=== PATIENT | male | born 1970 | race Caucasian/White ===

== ENCOUNTER → 2020-05-24 13:28 | Outpatient (BNVA) | payer BC, SELFPAY | PROVIDERS: Family Provider Internal Medicine; PCP Specialist; Referring Provider Otolaryngology; Visit Provider Nurse Practitioner | DX: R41.3 Other amnesia (principal); R41.9 Unspecified symptoms and signs involving cognitive functions and awareness | CPT/HCPCS: 96116; 99204 ==

== ENCOUNTER 2020-06-07 08:32 | Outpatient (CLI) | payer BC, SELFPAY ==
--- NOTE | 2020-06-07 08:42 | MR_ITS ---
WS: [id number] MRI BRAIN WITH AND WITHOUT CONTRAST HISTORY: AMNESIA COMPARISON: 06/16/2013 TECHNIQUE: Multiplanar imaging performed through the brain with Prohance 17 ml's IV. No acute infarcts are seen. Pandya-white matter differentiation is well preserved. No susceptibility artifacts or prior lacunar infarcts. Ventricles and extra-axial spaces are normal. Clivus and pituitary gland are normal. Visualized posterior fossa and brainstem are also normal. Postcontrast images are negative for masses or vascular malformations. Dural venous sinuses are normal. Paranasal sinuses: Significant sinusitis. There is marked mucoperiosteal thickening with enhancement. No air-fluid levels. Sinus disease does not appear to extend intracranially at this time. Mastoid air cells: Extensive fluid in the RIGHT mastoid air cells. Calvarium and scalp: Normal. MR/MR head wo/w con [id number] IMPRESSION: 1. No acute infarcts or mass. 2. Severe extensive pansinusitis. No subperiosteal abscess or intracranial ext ent at this time. Recommend aggressive treatment of sinusitis.
[2020-06-07 10:29] LABS: Basophils # 0.1 10^3/uL (0.0-0.1); Basophils % 0.9 %; Eosinophils # 0.8 10^3/uL (0.0-0.8); Eosinophils % 12.8 %; Hematocrit 42.8 % (42.0-52.0); Lymphocytes # 1.3 10^3/uL (0.8-4.8); Lymphocytes % 19.5 %; Mean Corpuscular HGB Conc 32.7 g/dL (30.0-36.0); Mean Corpuscular Hemoglobin 32.1 pg (28.0-34.0); Mean Corpuscular Volume 98.2 fL (80-94); Mean Platelet Volume 11.3 fL (7.4-10.4); Monocytes # 0.6 10^3/uL (0.2-0.9); Monocytes % 9.4 %; Neutrophils # 3.63 10^3/uL (1.8-7.7); Neutrophils % 56.6 %; Nucleated Red Blood Cells % 0 %; Platelet Count 207 10^3/cmm (130-400); Red Blood Count 4.36 10^6/uL (4.1-5.3); Red Cell Distribution Width 13.1 % (12.1-15.1); White Blood Count 6.4 10^3/uL (4.0-10.0)
[2020-06-07 11:02] LABS: Alanine Aminotransferase 25 U/L (0-41); Albumin Level 4.2 g/dL (3.5-5.2); Alkaline Phosphatase 80 IU/L (40-130); Anion Gap 13.3 (5-19); Aspartate Amino Transferase 28 U/L (0-40); Blood Urea Nitrogen 25 mg/dL (6-20); Calcium 9.5 mg/dL (8.5-10.5); Carbon Dioxide 24 mmol/L (22-29); Chloride 108 mmol/L (98-107); Globulin 2.9 g/dL (1.3-4.6); Glomerular Filtration Rate 49.7 mL/min (90-130); Glucose 116 mg/dL (65-115); Osmolality Calculated 288 mOsm/kg (285-295); Potassium 5.3 mmol/L (3.5-5.1); Sodium 140 mmol/L (136-145); Thyroid Stimulating Hormone 0.66 uIU/mL (0.27-4.20); Total Bilirubin 0.3 mg/dL (0.15-1.2); Total Protein 7.1 g/dL (6.6-8.7)
[2020-06-07 11:08] LABS: Rapid Plasma Reagin Syphilis Nonreactive (Nonreactive)
[2020-06-07 11:21] LABS: Erythrocyte Sedimentation Rate 4 mm/hr (0-10)
[2020-06-07 11:42] LABS: Vitamin B12 440 pg/mL (232-1245)
== END 2020-06-07 08:33 | disposition home or self-care (01) ==
PROVIDERS: Family Provider Nurse Practitioner; PCP Nurse Practitioner; Visit Provider Nurse Practitioner
DX: R41.3 Other amnesia (principal); J32.4 Chronic pansinusitis
CPT/HCPCS: 70553; 80053; 82607; 84443; 85025; 85651; 86592; A9579

== ENCOUNTER → 2020-06-13 14:24 | Outpatient (BNVA) | payer BC, SELFPAY | PROVIDERS: Family Provider Internal Medicine; PCP Specialist; Visit Provider Specialist | DX: R41.3 Other amnesia (principal); R56.9 Unspecified convulsions | CPT/HCPCS: 95816 ==

== ENCOUNTER → 2020-11-20 13:37 | Outpatient (BNVA) | payer BC, SELFPAY | PROVIDERS: Family Provider Internal Medicine; PCP Nurse Practitioner; Visit Provider Internal Medicine | DX: M10.9 Gout, unspecified (principal); Z79.899 Other long term (current) drug therapy; Z11.59 Encounter for screening for other viral diseases; R53.83 Other fatigue; R76.8 Other specified abnormal immunological findings in serum; R41.3 Other amnesia; M25.50 Pain in unspecified joint; B88.2 Other arthropod infestations | CPT/HCPCS: 99204 ==

== ENCOUNTER 2020-11-20 14:59 | Outpatient (CLI) | payer BC, SELFPAY ==
--- NOTE | 2020-11-20 15:36 | XR_ITS ---
WS: [id number] LUMBAR SPINE: 3 VIEWS TECHNIQUE: AP, lateral and L5-S1 spot. HISTORY: R53.83 - Other fatigue COMPARISON: None available. Lumbar vertebra are normally aligned. Disc spaces are well-maintained. Small endplate osteophytes at L3 and L4. No fractures. No destructiv e bone lesions. SI joints are symmetric bilaterally. No soft tissue abnormalities. XR/XR lumbar spine 2-3V* [id number] IMPRESSION: Mild spondylosis at L3 and L4. No fractures.
--- NOTE | 2020-11-20 15:36 | XR_ITS ---
WS: [id number] SACROILIAC JOINTS TECHNIQUE: AP and oblique imaging is submitted. HISTORY: R53.83 - Other fatigue COMPARISON: None available. Normal appearance of the SI joints with no sclerosis or erosions. No bone destruction. No erosions or fusion identified. No soft tissue abnormality. XR/XR sacroiliac jts m 3V [id number] IMPRESSION: Normal SI joints.
--- NOTE | 2020-11-20 15:36 | XR_ITS ---
WS: [id number] LEFT HAND: 2 VIEW(S) TECHNIQUE: PA and lateral. HISTORY: R53.83 - Other fatigue COMPARISON: None available. No acute fracture or dislocation. No soft tissue or bone abnormality. XR/XR hand LT 2V [id number] IMPRESSION: Normal LEFT hand.
--- NOTE | 2020-11-20 15:36 | XR_ITS ---
WS: [id number] RIGHT HAND: 2 VIEW(S) TECHNIQUE: PA and lateral. HISTORY: R53.83 - Other fatigue COMPARISON: None available. No acute fracture or dislocation. No soft tissue or bone abnormality. Moderate joint space narrowing involving the radiocarpal joint. XR/XR hand RT 2V [id number] IMPRESSION: 1. Negative RIGHT hand. 2. Moderate radiocarpal joint space narrowing.
== END 2020-11-20 15:00 | disposition home or self-care (01) ==
PROVIDERS: PCP Nurse Practitioner; Visit Provider Internal Medicine
DX: R53.83 Other fatigue (principal); M47.816 Spondylosis without myelopathy or radiculopathy, lumbar region
CPT/HCPCS: 72100; 72202; 73120

== ENCOUNTER → 2020-11-22 09:16 | Outpatient (BNVA) | payer BC, SELFPAY | PROVIDERS: PCP Nurse Practitioner; Visit Provider Internal Medicine | DX: M10.9 Gout, unspecified (principal); D86.9 Sarcoidosis, unspecified; Z11.59 Encounter for screening for other viral diseases; Z79.899 Other long term (current) drug therapy; R53.83 Other fatigue | CPT/HCPCS: 36415; 82024; 82310; 82533; 82550; 82784; 83516; 83970; 84100; 84443; 84550; 85651; 86140; 86160; 86617; 86704; 86803; 86812; 87340 ==

== ENCOUNTER → 2021-01-15 12:31 | Outpatient (BNVA) | payer BC, SELFPAY | PROVIDERS: PCP Nurse Practitioner; Visit Provider Internal Medicine | DX: R76.8 Other specified abnormal immunological findings in serum (principal); M54.5 Low back pain; R53.83 Other fatigue; N18.9 Chronic kidney disease, unspecified; R79.82 Elevated C-reactive protein (CRP) | CPT/HCPCS: 99214 ==

== ENCOUNTER → 2021-03-15 13:49 | Outpatient (BNVA) | payer BC, SELFPAY | PROVIDERS: PCP Nurse Practitioner; Visit Provider Internal Medicine | DX: R76.8 Other specified abnormal immunological findings in serum (principal); R79.82 Elevated C-reactive protein (CRP); M54.5 Low back pain; M79.89 Other specified soft tissue disorders | CPT/HCPCS: 99213 ==